=== PATIENT | male | born 2005 | race Caucasian/White ===

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

== ENCOUNTER 2024-06-09 22:18 | Emergency (ER) | payer SELFPAY ==
[2024-06-09 22:31] VITALS: BP 104/68; PULSE 60; RESP 18; TEMP 98.4; BMI 21.9
[2024-06-09] MEDS ORDERED: ONDANSETRON 4 MG/2 ML VIAL ONE (23:04)
[2024-06-09] MEDS: SODIUM CHLORIDE 0.9% 500 ML INFUS.BAG IV ONE (23:18)
[2024-06-09] MEDS: ONDANSETRON 4 MG/2 ML VIAL IVPUSH ONE (23:18)
[2024-06-09 23:24] LABS: BASO % 0.3 % (0-2.0); EOS % 1.5 % (0-4.5); HEMATOCRIT 40.7 % (35.4-49); HEMOGLOBIN 13.9 GM/dL (11.7-16.9); LYMPH % 18.7 % (8-40); MCH 32.5 pg (25.7-33.7); MCHC 34.1 g/dl (32.0-35.9); MEAN CELL VOLUME 95.2 fl (80-96); MEAN PLT VOLUME 8.4 fl (7.5-11.1); MONO % 6.8 % (3.8-10.2); NEUT % 72.7 % (42.8-82.8); PLATELET COUNT 172 10^3/uL (134-434); RBC 4.27 M/mm3 (4.00-5.60); RDW 12.6 % (11.9-15.9); WHITE BLOOD COUNT 5.8 K/mm3 (4.0-10.0)
[2024-06-09 23:33] LABS: INR 1.12 (0.83-1.09); PROTHROMBIN TIME (PATIENT) 12.6 SEC (9.7-13.0)
[2024-06-09] MEDS ORDERED: FAMOTIDINE 20 MG/50 ML IVPB 20 MG/50 ML MG IVPB ONE (23:33)
[2024-06-09 23:36] LABS: ACTIVATED PTT 31.9 SECONDS (25.2-36.5)
[2024-06-09] MEDS: FAMOTIDINE 20 MG/50 ML IVPB 20 MG/50 ML MG IVPB ONE (23:36)
[2024-06-09 23:46] LABS: POTASSIUM 4.1 mmol/L (3.5-5.1)
[2024-06-09 23:48] LABS: CALCIUM 8.9 mg/dL (8.5-10.1)
[2024-06-09 23:49] LABS: ALBUMIN 4.2 g/dl (3.4-5.0); BLOOD UREA NITROGEN 12.1 mg/dL (7-18)
[2024-06-09 23:52] LABS: CREATININE 0.7 mg/dL (0.55-1.3)
[2024-06-09 23:53] LABS: BILIRUBIN,TOTAL 0.6 mg/dL (0.2-1)
[2024-06-09 23:54] LABS: TOT PROT 6.8 g/dl (6.4-8.2)
== END 2024-06-10 01:21 | disposition home or self-care (01) ==
LOC: JER 22:18
PROC: 3E033GC Introduction of Other Therapeutic Substance into Peripheral Vein, Percutaneous Approach (ICD-10-PCS; principal; 2024-06-09)
PROC: 3E033GC Introduction of Other Therapeutic Substance into Peripheral Vein, Percutaneous Approach (ICD-10-PCS; 2024-06-09)
DX: F10.929 Alcohol use, unspecified with intoxication, unspecified (principal); Y90.4 Blood alcohol level of 80-99 mg/100 ml; F12.929 Cannabis use, unspecified with intoxication, unspecified; R11.2 Nausea with vomiting, unspecified; R10.13 Epigastric pain
CPT/HCPCS: 36415; 71046-TC-FY; 80053; 80307; 83690; 85025; 85610; 85730; 99284-25